=== PATIENT | male | born 1980 | race Asian ===

== ENCOUNTER 2024-05-17 00:45 | Emergency (ER) | payer BC, MEDICAID ==
[~2024-05-17] VITALS: Ht 165.1 cm; Wt 64.0 kg
[2024-05-17 00:51] VITALS: O2SAT 97
[2024-05-17 01:56] VITALS: BP 183/108; PULSE 103; RESP 22; TEMP 36.9; O2SAT 100
[2024-05-17 02:19] LABS: HEMATOCRIT. 50.3 % (42.0-52.0); HEMOGLOBIN. 16.9 g/dL (14.0-18.0); MEAN CORPUSCULAR HGB CONC 33.5 g/dL (31.0-37.0); MEAN CORPUSCULAR VOLUME 86.4 fL (80.0-94.0); PLATELET 208 x1000/uL (130-400); RED BLOOD CELL COUNT 5.82 mill/uL (4.7-6.1)
[2024-05-17 02:27] LABS: DIFFERENTIAL COMMENT 1; LACTIC ACID 2.4 mmol/L (0.4-2.0)
[2024-05-17 03:41] LABS: *AMPHETAMINES SCREEN URINE PRESUMPTIVE POSITIVE (NEGATIVE); *BARBITURATES SCREEN URINE NEGATIVE (NEGATIVE); *BENZODIAZEPINES SCREEN URINE PRESUMPTIVE POSITIVE (NEGATIVE); *COCAINE SCREEN URINE NEGATIVE (NEGATIVE); CANNABINOID URINE SCREEN NEGATIVE (NEGATIVE); ECSTASY MDMA SCREEN URINE NEGATIVE (NEGATIVE); METHADONE URINE SCREEN NEGATIVE (NEGATIVE); OPIATES URINE SCREEN NEGATIVE (NEGATIVE); PHENCYCLIDINE URINE SCREEN NEGATIVE (NEGATIVE)
[2024-05-18 15:41] LABS: PLATELET ESTIMATE NORMAL
== END 2024-05-17 03:46 | disposition left against medical advice (07) ==
LOC: ER 00:45
DX: R41.82 Altered mental status, unspecified (principal); I49.9 Cardiac arrhythmia, unspecified
CPT/HCPCS: 36415; 71045; 80305; 83605; 85025; 93005; 99285